=== PATIENT | female | born 1970 | race Caucasian/White ===

== ENCOUNTER 2017-09-09 15:42 | Emergency (ER) | payer BC, OTHER ==
--- NOTE | 2017-09-09 16:30 | ERNOTE ---
Lower Extremity HPI - Narrative Date of Service: 09/09/17 - General Lower Extremities Pain: leg: right Time Seen by Provider: 09/09/17 16:00 Source: patient Exam Limitations: no limitations - Immun/Allergies/Home Medications Immunizations: IMMUNIZATION HX Immunizations Up to Date Yes History of Influenza Vaccine Yes Hx Pneumococcal Vaccination No Allergies/Adverse Reactions: Allergies Allergy/AdvReac Type Severity Reaction Status Date / Time acetaminophen AdvReac Mild DIZZINESS Verified 09/09/17 15:54 [From Darvocet-N] propoxyphene napsylate AdvReac Mild DIZZINESS Verified 09/09/17 15:54 [From Darvocet-N] Home Medications: HOME MEDICATIONS Ibuprofen [Motrin] 800 mg PO BID 12/28/13 [Last Taken Unknown] Lidocaine [Lidoderm 5%] 1 patch TP DAILY PRN 12/28/13 [Last Taken Unknown] Nortriptyline HCl [Pamelor] 50 mg PO DAILY 03/06/16 [Last Taken Unknown] Acetaminophen [Tylenol] 1,000 mg PO Q4H PRN 07/14/16 [Last Taken Unknown] Lisinopril [Zestril] 10 mg PO DAILY 07/14/16 [Last Taken 07/25/16 08:00] - History of Present Illness Narrative: Pt. comes in by private car from her PCP office with c/o RLE swelling and pain. Pt. states taht she has R calf pain and R medial thigh pain that worsens with movement pt. also states taht both of her hands swell occasionally but when it is cold they improve and that is not occurring at this time. Occurred: last week Method of Injury: Reports: no apparent injury Loss of Consciousness: Reports: no loss of consciousness Modifying Factors - (Improves): Reports: rest Modifying Factors - (Worsens): Reports: movement Associated Symptoms: Denies: unable to bear weight, snapping, popping sensation Other Injuries: Reports: none Subsequent Symptoms: Denies: sensory loss, numbness, motor loss, bowel/bladder problem Prior Treament: Reports: recently seen, treated by physician. Denies: recently hospitalized, similar symptoms before, currently on antibiotics Review of Systems - Review of Systems Constitutional: Present: no symptoms reported. Absent: fever, chills, weakness , fatigue, malaise EYE: Present: no symptoms reported ENT: Present: no symptoms reported Respiratory: Present: no symptoms reported. Absent: shortness of breath, cough , wheezing Cardiology: Present: no symptoms reported. Absent: chest pain, palpitations, edema Gastrointestinal/Abdominal: Present: no symptoms reported. Absent: nausea, vomiting, diarrhea Genitourinary: Present: no symptoms reported. Absent: frequency, decreased urinary output Musculoskeletal: Present: muscle pain - R calf and R medial thigh Skin: Present: no symptoms reported. Absent: rash, change in hair/nails Neurological: Present: no symptoms reported. Absent: headache, dizziness/light- headedness, numbness, tingling Hematologic/Lymphatic: Present: no symptoms reported, other - easy clotting and bruising that does not resolve. Absent: easy bruising, easy bleeding All Other Systems: All systems neg except as marked - Patient's Past Medical History Patient History - Medical: Fibromyalgia Patient History - Cardiac/Respiratory: Deep Vein Thrombosis, Hypertension Patient History - Cancer: No Hx of Cancer Patient History - Surgical Procedures: Colonoscopy, D & C, Ear Tubes, Tubal Ligation, T & A, Other Patient History - Other: None LMP (females 10-50): 3 years ago - Family History Father Family History - Medical: No pertinent hx Family History - Cardiac/Respiratory: Hypertension - Social History Living Situations: home Abuse History: No History of abuse Psych History: No pertinent hx Smoking Status: Never smoker Alcohol Use: occasionally Drug Use: none - Immunizations Immunizations Up to Date: Yes Hx Pneumococcal Vaccination: No History of Influenza Vaccine: Yes Physical Exam - Physical Exam General Appearance: Present: wd/wn, alert, no apparent distress Head Exam: Present: normal inspection, no evidence of injury Eye Exam: Normal inspection: bilateral Neck: Present: normal inspection Respiratory: Present: no respiratory distress, normal breath sounds, no accessory muscle use, chest nontender, lungs clear. Absent: rales, rhonchi, wheezing Cardiovascular/Chest: Present: regular rate, rhythm, no murmur, normal peripheral pulses Gastrointestinal/Abdominal: Present: normal bowel sounds, nontender, nondistended, soft, no organomegaly Back Exam: Present: normal inspection Extremity Exam: Present: no edema, calf tenderness - RLE, other - homans negative. Absent: decreased range of motion, pedal edema, bony tenderness, joint redness Neurological Exam: Present: alert, oriented, normal mood/affect, no motor/ sensory deficits. Absent: [employer] II-XII nml as tested, normal cerebellar test Skin Exam: Present: normal color, warm/dry. Absent: pallor, skin rash ED Progress - Date and Time Seen: Date and Time: 09/09/17 17:15 Unsure of why pt. is having intermittent swelling but do feel that this needs further evaluation by her PCP but we have ruled out dangerous blood clots and also feel that pt. has venous insufficiency of her BLE so have recommended to pt. to use compression stockings daily at all times that her legs are not elevated. - Vital Signs Patient's Vital Signs:: I have reviewed the patient's vital signs. Vital Signs: Vital Signs 09/09/17 15:47 Temperature 36.6 C Pulse Rate 83 Respiratory 15 Rate Blood Pressure 143/91 O2 Sat by Pulse 94 Oximetry - CT/Ultrasound CT/Ultrasound Narrative: US negative for DVT - Progress/Reassessment Chief Complaint: Lower Extremity Pain/ Injury Progress:: Unchanged Departure Clinical Impression: Venous insufficiency of both lower extremities - Departure Disposition: Home self-care Condition: Good Instructions: Venous Stasis or Chronic Venous Insufficiency Additional Instructions: Please follow up with Dr Stout as able to futher evaluate your intermittent swelling. Referrals: Malini Barry DO [Primary Care Provider] -
[2017-09-10 09:19] VITALS: BP 138/89
== END 2017-09-09 17:24 | disposition home or self-care (01) ==
LOC: ER 15:42
DX: Z86.718 Personal history of other venous thrombosis and embolism; I87.2 Venous insufficiency (chronic) (peripheral)